=== PATIENT | male | born 1960 | race Caucasian/White ===

== ENCOUNTER → 2016-10-12 | Outpatient (CLI) | payer OTHER ==
[~2016-10-12] MED LIST: AMLO10TA2 PO; ASPI81TA85 PO; CALTTAB5 PO; CELE40TA PO; CYCL10TA PO; CYMB1CAP5 PO; HYDR25TAB PO; LISI-538 PO; LYRI75CA PO; METO50TA2 PO; MULTCAP PO; NICO14DI3 TD; OMEP20TA PO; PERC10TA17 PO; TRIC145T PO; TYLE1TAB5 PO; XANA2TAB2 PO; ZOCO20TA PO
--- NOTE | 2016-10-12 09:59 | REP ---
MRI LUMBAR SPINE WITHOUT CONTRAST: 10/12/2016 COMPARISON: 08/04/2015. CLINICAL HISTORY: Back pain, lumbar spondylosis. TECHNIQUE: Sagittal T1, T2 and STIR images with axial T1 and T2 sequences provided. FINDINGS: Normal lordosis is maintained. Vertebral body heights and marrow signal are normal from T12 through S2. The disc space is narrowed at L1-2, L3-4 through L5, S1 sparing only L2-3. All levels show loss of disc water signal but least at L2-3. The conus terminates at T12-L1 as before. There are discogenic endplate changes at L4-5. I see no progression of these findings compared to the prior. At T11-T12 and T12-L1 levels, there is no disc bulge or hernia, spinal or foraminal stenosis. At L1-L2, there is a broad-based disc bulge flattening ventral thecal sac. The central canal shows adequate cross-sectional area and no foraminal stenosis noted. At L2-3, there is mild disc bulge not causing any central canal stenosis. There is no foraminal encroachment. At L3-L4, there is a broad-based disc bulge with small central disc extrusion which appears unchanged from the previous study. This indents the ventral thecal sac. Ligamentum flavum and facet hypertrophy is noted producing combination factor moderate stenosis unchanged. Mild foraminal encroachment on the right as before. The left foramen shows adequate perineural fat, unchanged. At L4-5, a broad-based disc bulge with central disc extrusion is again seen. It is unchanged in size from the previous study. Ligamentum and facet hypertrophy noted producing moderately severe central canal stenosis. This is stable. There is mild foraminal encroachment on the right compared to the left, unchanged. At L5-S1, there is a broad-based disc bulge abutting the thecal sac. Hypertrophic facet changes and a stable few millimeters of anterolisthesis of L5 on S1. Mild nerve root compression on the left at L5 with marginally adequate right L5 nerve root. IMPRESSION: 1. Central canal stenosis L3-4, moderate with combined factors and some mild compression of the nerve root on the right in the neural foramen. Stable size of the disc extrusion at this level. 2. Moderate central canal stenosis of L4-5 with a disc bulge and extrusion with combined factors. No change in the central canal stenosis or size of the extrusion with some foraminal encroachment on the right. 3. The L5-S1 level shows disc bulge with central canal stenosis due to combined factors. There is grade 1 spondylolisthesis of L5-S1 due to facet arthritis. Some foraminal encroachment on the left slightly compressing L5 nerve root. The right foramen adequate. 4. The L1-2 and L2-3 levels show no significant spinal or foraminal stenosis. Signed by Russell Hood MD 10/12/2016 10:57 A
== END ==
LOC: M RAD 06:58
PROVIDERS: ATTEND Internal Medicine Cardiovascular Disease
DX: M51.26 Other intervertebral disc displacement, lumbar region (principal); M51.36 Other intervertebral disc degeneration, lumbar region

== ENCOUNTER → 2016-10-29 | Outpatient (CLI) | payer OTHER ==
--- NOTE | 2016-10-31 00:54 | ECWPNPC ---
PATIENT NAME: CHONG ZULETA : 1960 GENDER: MALE VISIT DATE: 10/29/2016 DISCHARGE DATE: 10/29/161658 VISIT LOCKED DATE TIME: PHYSICIAN: GAEL JONES RESOURCE: GAEL JONES REASON FOR APPOINTMENT 1. BACK/NECK HISTORY OF PRESENT ILLNESS HISTORY OF PRESENT ILLNESS: HERE FOR F/U AND MANAGEMENT OF CHRONIC NECK AND LOW BACK PAIN.RATING PAIN VAS 7/10.WORSE AREA OF PAIN IS NECK.[facility] WHO STOPPED LYRICA AND STARTED ON GABAPENTIN 600MG BID.PATIENT IS ABOUT TO GET NEW PRIMARY CARE PROVIDER.PATIENT IS NOT INTERESTED IN INJECTION THERAPY.CHIEF AREA PAIN RIGHT UPPER BACK.DIDNT DO PT WE ORDERED LAST VISIT. PAIN THE PATIENT DESCRIBES THE PAIN... FALL RISK SCREENING: SCREENING :TWO OR MORE FALLS WITHOUT INJURY IN THE PAST YEAR CURRENT MEDICATIONS TAKING CELEXA 40 MG TABLET ORALLY ONCE A DAY TAKING CYCLOBENZAPRINE HCL 10 MG TABLET 1 TABLET ORALLY THREE TIMES A DAY TAKING TRICOR 145 MG TABLET 1 TABLET ORALLY ONCE A DAY TAKING LISINOPRIL 20 MG TABLET 1 TABLET ORALLY BID TAKING METOPROLOL SUCCINATE 50 MG 1.5 TABS ORALLY BID TAKING SIMVASTATIN 20 MG TABLET 1 TABLET IN THE EVENING ORALLY ONCE A DAY TAKING TYLENOL PM EXTRA STRENGTH 500-25 MG TABLET 1 TABLET AT BEDTIME NEEDED ORALLY ONCE A DAY TAKING OMEPRAZOLE 20 MG ORALLY BID TAKING AMLODIPINE BESYLATE 10 MG TABLET 1 TABLET ORALLY NIGHTLY TAKING CALTRATE 600 TABLET ORALLY DAILY TAKING GABAPENTIN 600 MG TABLET 1 TABLET ORALLY BID NOT-TAKING MULTIVITAMIN 1 TAB ORALLY DAILY NOT-TAKING CYMBALTA 1 CAPSULE ORALLY DAILY AT BEDTIME NOT-TAKING PERCOCET 325-10 MG TABLET 1 TABLET NEEDED ORALLY EVERY 6 HRS DISCONTINUED XANAX 2 MG TABLET 1 TABLET ORALLY BEDTIME DISCONTINUED PERCOCET 5-325 MG TABLET 2 TABLETS NEEDED ORALLY EVERY 6 HRS DISCONTINUED LYRICA 150 MG CAPSULE 1 CAPSULE ORALLY TID DISCONTINUED TRAZODONE HCL 50 MG TABLET 1 TABLET AT BEDTIME NEEDED ORALLY ONCE A DAY PAST MEDICAL HISTORY HTN HIGH CHOLESTEROL ANXIETY REFLUX LEFT SHOULDER ROTATOR CUFF TEAR CHRONIC LOW BACK PAIN CERVICALGIA OCCIPITAL NEURALGIA ALLERGIES N.K.D.A. SOCIAL HISTORY GENERAL: TOBACCO USE ARE YOU A:CURRENT SMOKER PATIENT COUNSELED ON THE DANGERS OF TOBACCO USE AND URGED TO QUIT:10/29/2016 ARE YOU INTERESTED IN QUITTING?THINKING ABOUT QUITTING COUNSELED THE PATIENT ON SMOKING CESSATION, EDUCATION NURENLLQ36/03/2017 PAIN CLINIC PFS, CLERGY, PUBLIC HEALTH REFERRALS CLERGY REFERRAL NEEDED?NO WAS THE PROVIDER NOTIFIED OF ANY PERTINENT INFO?NO PFS REFERRAL NEEDED?NO PUBLIC HEALTH REFERRAL NEEDED?NO PATIENT: ____. REVIEW OF SYSTEMS CONSTITUTIONAL: ANY CHANGE IN YOUR MEDICAL CONDITION? NO . CHILLS NO . FEVER NO . INFECTION: DO YOU HAVE NEW INFECTIONS? NO . DO YOU HAVE HISTORY OF MRSA? NO . MUSCULOSKELETAL: ANY NEW PATTERNS OF PAIN OR NUMBNESS? YES . GASTROENTEROLOGY: ANY NEW CHANGE IN BOWEL CONTROL? NO . GENITOURINARY: ANY NEW CHANGE IN BLADDER CONTROL? NO . IS THERE A CHANCE YOU COULD BE ? NO . HEMATOLOGY/LYMPH: DO YOU TAKE ANY BLOOD THINNERS? (FOR EXAMPLE- COUMADIN, PLAVIX, AGGRENOX, PLATEL, PRADAXA, OR XARELTO) NO . WHEN WAS YOUR LAST DOSE? DATE: TIME: . NEUROLOGY: HAVE YOU FALLEN IN THE PAST 6 MONTHS? NO . ANY NEW EXTREMITY NUMBNESS OR WEAKNESS? NO . CARDIOLOGY: DO YOU HAVE A PACEMAKER OR DEFIBRILLATOR? NO . RESPIRATORY: HAVE YOU BEEN SICK IN THE PAST WEEK? NO . FEVER NO . FLU LIKE SYMPTOMS? NO . COUGH NO . INTEGUMENTARY: DO YOU HAVE ANY RASHES OR OPEN SORES? NO . ALLERGIC/IMMUNO: ARE YOU ALLERGIC TO SHELLFISH OR IV DYE? NO . ANY NEW ALLERGIES? NO . PSYCHIATRIC: DO YOU HAVE THOUGHTS OF HURTING YOURSELF OR SOMEONE ELSE? NO . ARE YOU ABUSED, NEGLECTED, OR IN AN UNSAFE ENVIRONMENT? NO . ENDOCRINOLOGY: ARE YOU DIABETIC? NO . OTHER: DO YOU NEED ANY PRESCRIPTIONS? NO . IF YES, PLEASE LIST: ____ . ANY NEW PROBLEMS WITH YOUR MEDICATIONS? NO . WHEN DID YOU LAST EAT? ____ . WHEN DID YOU LAST DRINK? ____ . WHAT DID YOU LAST DRINK? ____ . NAME OF PERSON DRIVING YOU HOME? ____ . DO YOU HAVE ANY OTHER QUESTIONS OR CONCERNS NO . REVIEWED BY: PROVIDER: GAEL VALDEZ . VITAL SIGNS WT 190 LBS, HT 72 IN, BMI 25.77 INDEX, BP 145/78 MM HG, HR 91 /MIN, RR 16 /MIN, TEMP 99.6 F, OXYGEN SAT % 96%, REVIEWED BY: VD. EXAMINATION CERVICAL SPINE/NECK: RANGE OF MOTION OF NECK:LIMITED FLEXION AND EXTENSION. VERTEBRAL SPINE TENDERNESS:TENDER WITH PALPATION OVER CERVICAL AXIS. MYOFASCIAL TRIGGER POINTS:TENDER WITH PALPATION OVER RIGHT TRAPEZIUS AND PARASPINAL REGION. ASSESSMENTS CERVICALGIA - M54.2 (PRIMARY) MYOFASCIAL MUSCLE PAIN - M79.1 LOW BACK PAIN - M54.5 TREATMENT CERVICALGIA STOP GABAPENTIN TABLET, 600 MG, 1 TABLET, ORALLY, BID, 30 DAY(S), 60 REFILL CYCLOBENZAPRINE HCL TABLET, 10 MG, 1 TABLET, ORALLY, THREE TIMES A DAY, 30 DAY(S), 45, REFILLS 2 NOTES: TRIGGER POINT INJECTION MATERIAL WAS PRINTEDSLOWLY DECREASE AND DISCONTINUE GABAPENTIN. REFERRAL TO:PHYSICAL THERAPIST REASON:CERVICALGIA/MYALGIA-2X WK X 6 WK-MYOFASCIAL RELEASE PROCEDURE CODES FA211 ESTABILISHED PATIENT [facility] FACILITY CHARGE DISPOSITION & COMMUNICATION FOLLOW UP 2WK POST (REASON: TPI RIGHT UPPER BACK) ELECTRONICALLY SIGNED BY COURTNEY ESPINAL ON 10/30/2016 AT 02:31 PM EDT DISCLAIMER : THIS IS A VISIT SUMMARY EXTRACTED FROM THE [employer] CHART. IT IS NOT A COPY OF THE [employer] PROGRESS NOTE. TOBY
== END ==
LOC: M PAIN 15:00
PROVIDERS: ATTEND Nurse Practitioner Family
DX: Z09 Encounter for follow-up examination after completed treatment for conditions other than malignant neoplasm (principal); G89.29 Other chronic pain; M54.2 Cervicalgia; M79.1 Myalgia; M54.5 Low back pain; I10 Essential (primary) hypertension; E78.00 Pure hypercholesterolemia, unspecified; F41.9 Anxiety disorder, unspecified; K21.9 Gastro-esophageal reflux disease without esophagitis; F17.200 Nicotine dependence, unspecified, uncomplicated; Z79.899 Other long term (current) drug therapy

== ENCOUNTER → 2016-11-13 | Outpatient (CLI) | payer OTHER | LOC: M PAIN 13:40 | PROVIDERS: ATTEND Anesthesiology | DX: Z53.29 Procedure and treatment not carried out because of patient's decision for other reasons (principal) ==

== ENCOUNTER → 2016-11-22 | Outpatient (CLI) | payer OTHER ==
[~2016-11-22] MED LIST changes: +BUPIVACAINE HCL 0.25% 10 ML VIAL As Ordered ONE; +BUPIVACAINE HCL 0.25% 30 ML VIAL As Ordered ONE; +TRIAMCINOLONE ACETONIDE SUSP 40 MG/ML VIAL (J3301) As Ordered ONE; +oxyCODONE 5MG TAB As Ordered ONE
--- NOTE | 2016-11-25 23:45 | ECWPNPC ---
PATIENT NAME: CHONG ZULETA : 1960 GENDER: MALE VISIT DATE: 11/22/2016 DISCHARGE DATE: 11/22/16935 VISIT LOCKED DATE TIME: PHYSICIAN: MACEY DO RESOURCE: MACEY DO REASON FOR APPOINTMENT 1. TPI HISTORY OF PRESENT ILLNESS HISTORY OF PRESENT ILLNESS: PAIN THE PATIENT DESCRIBES THE PAIN... FALL RISK SCREENING: SCREENING :NO FALLS IN THE PAST YEAR CURRENT MEDICATIONS TAKING CELEXA 40 MG TABLET ORALLY ONCE A DAY, NOTES: 11-21-162099 TAKING TRICOR 145 MG TABLET 1 TABLET ORALLY ONCE A DAY, NOTES: 11-21-162099 TAKING LISINOPRIL 20 MG TABLET 1 TABLET ORALLY BID, NOTES: 11-22-16599 TAKING METOPROLOL SUCCINATE 50 MG 1.5 TABS ORALLY BID, NOTES: 11-22-16599 TAKING SIMVASTATIN 20 MG TABLET 1 TABLET IN THE EVENING ORALLY ONCE A DAY, NOTES: 11-21-162099 TAKING OMEPRAZOLE 20 MG ORALLY BID, NOTES: 11-22-16599 TAKING AMLODIPINE BESYLATE 10 MG TABLET 1 TABLET ORALLY NIGHTLY, NOTES: 11-21-162099 TAKING CALTRATE 600 TABLET ORALLY DAILY, NOTES: 11-22-16599 TAKING CYCLOBENZAPRINE HCL 10 MG TABLET 1 TABLET ORALLY THREE TIMES A DAY, NOTES: 11-21-162099 TAKING VICODIN 5-300 MG TABLET 1 TABLET NEEDED ORALLY EVERY 6 HRS, NOTES: 11-22-16599 NOT-TAKING MULTIVITAMIN 1 TAB ORALLY DAILY NOT-TAKING CYMBALTA 1 CAPSULE ORALLY DAILY AT BEDTIME DISCONTINUED TYLENOL PM EXTRA STRENGTH 500-25 MG TABLET 1 TABLET AT BEDTIME NEEDED ORALLY ONCE A DAY DISCONTINUED PERCOCET 325-10 MG TABLET 1 TABLET NEEDED ORALLY EVERY 6 HRS MEDICATION LIST REVIEWED AND RECONCILED WITH THE PATIENT PAST MEDICAL HISTORY HTN HIGH CHOLESTEROL ANXIETY REFLUX LEFT SHOULDER ROTATOR CUFF TEAR CHRONIC LOW BACK PAIN CERVICALGIA OCCIPITAL NEURALGIA ALLERGIES N.K.D.A. SOCIAL HISTORY GENERAL: PAIN CLINIC PFS, CLERGY, PUBLIC HEALTH REFERRALS CLERGY REFERRAL NEEDED?NO WAS THE PROVIDER NOTIFIED OF ANY PERTINENT INFO?NO PFS REFERRAL NEEDED?NO PUBLIC HEALTH REFERRAL NEEDED?NO PATIENT: ____. REVIEW OF SYSTEMS CONSTITUTIONAL: ANY CHANGE IN YOUR MEDICAL CONDITION? NO . CHILLS NO . FEVER NO . INFECTION: DO YOU HAVE NEW INFECTIONS? NO . DO YOU HAVE HISTORY OF MRSA? NO . MUSCULOSKELETAL: ANY NEW PATTERNS OF PAIN OR NUMBNESS? NO . GASTROENTEROLOGY: ANY NEW CHANGE IN BOWEL CONTROL? NO . GENITOURINARY: ANY NEW CHANGE IN BLADDER CONTROL? NO . IS THERE A CHANCE YOU COULD BE ? NO . HEMATOLOGY/LYMPH: DO YOU TAKE ANY BLOOD THINNERS? (FOR EXAMPLE- COUMADIN, PLAVIX, AGGRENOX, PLATEL, PRADAXA, OR XARELTO) NO . WHEN WAS YOUR LAST DOSE? DATE: TIME: . NEUROLOGY: HAVE YOU FALLEN IN THE PAST 6 MONTHS? NO . ANY NEW EXTREMITY NUMBNESS OR WEAKNESS? NO . CARDIOLOGY: DO YOU HAVE A PACEMAKER OR DEFIBRILLATOR? NO . RESPIRATORY: HAVE YOU BEEN SICK IN THE PAST WEEK? NO . FEVER NO . FLU LIKE SYMPTOMS? NO . COUGH NO . INTEGUMENTARY: DO YOU HAVE ANY RASHES OR OPEN SORES? NO . ALLERGIC/IMMUNO: ARE YOU ALLERGIC TO SHELLFISH OR IV DYE? NO . ANY NEW ALLERGIES? NO . PSYCHIATRIC: DO YOU HAVE THOUGHTS OF HURTING YOURSELF OR SOMEONE ELSE? NO . ARE YOU ABUSED, NEGLECTED, OR IN AN UNSAFE ENVIRONMENT? NO . ENDOCRINOLOGY: ARE YOU DIABETIC? NO . OTHER: DO YOU NEED ANY PRESCRIPTIONS? NO . IF YES, PLEASE LIST: ____ . ANY NEW PROBLEMS WITH YOUR MEDICATIONS? NO . WHEN DID YOU LAST EAT? 11-21-16 PM . WHEN DID YOU LAST DRINK? 11-22-16 0600 . WHAT DID YOU LAST DRINK? WATER . NAME OF PERSON DRIVING YOU HOME? JJ SON . DO YOU HAVE ANY OTHER QUESTIONS OR CONCERNS NO . REVIEWED BY: PROVIDER: . VITAL SIGNS WT 200 LBS, HT 72 IN, BMI 27.12 INDEX, BP 131/69 MM HG, HR 83 /MIN, RR 95 /MIN, TEMP 99.6 F, OXYGEN SAT % 95, SAFE IN ENV? (Y/N) KG [id number], REVIEWED BY: CM. ASSESSMENTS MYALGIA - M79.1 (PRIMARY) PROCEDURES PN TRIGGER POINT INJECTION WITH STEROIDS PRE PROCEDURE DIAGNOSIS 1. MYALGIA 2. PAIN AT RIGHT SHOULDER AREA POST PROCEDURE DIAGNOSIS 1. MYALGIA 2. PAIN AT RIGHT SHOULDER AREA PROCEDURE TRIGGER POINT INJECTION AT RIGHT SHOULDER AREA SURGEON DR. MACEY DO GEOSPATIAL APPLICATIONS DEVELOPER NONE ANESTHESIA LOCAL PRE PROCEDURE NOTE THE PATIENT HAS A HISTORY OF CHRONIC PAIN AT THE RIGHT SHOULDER AREA. I EVALUATE THE PATIENT AND REVIEWED THE CHART. THERE IS EVIDENCE OF BANDS OF TISSUE WITH RESTRICTION OF MOVEMENT AND PRESENCE OF TRIGGER POINT AT THE AFFECTED AREA. I WENT OVER THE RISKS, ALTERNATIVES, AND BENEFITS ASSOCIATED WITH THIS PROCEDURE. THE PATIENT WOULD LIKE TO PROCEED AND GIVE CONSENT TO PERFORMED THE PROCEDURE. THE PATIENT DENIES UNEXPLAINABLE WEIGHT LOSS, FEVER, CHILLS, OR NEW CHANGES IN URINARY OR BOWEL CONTROL DESCRIPTION OF PROCEDURE THE PATIENT WAS BROUGHT TO THE PROCEDURE ROOM AND PLACED IN THE SITTING POSITION. THE AREA WAS CLEANED WITH ALCOHOL. THE PROCEDURE WAS DONE USING [employer] STERILE TECHNIQUE. I CHECKED LATERALITY AND THE LEVEL WHERE THE PROCEDURE WAS GOING TO BE PERFORMED WITH THE PATIENT AND THE SUPPORTING STAFF AT THE MOMENT OF THE TIME OUT IN THE PROCEDURE ROOM. USING A 25-GAUGE NEEDLE, TRIGGER POINTS WERE INJECTED AT THE RIGHT SHOULDER AREA WITH A TOTAL OF 40 ML OF BUPIVACAINE 0.25% AND KENALOG 40 MG. THERE WAS NO EVIDENCE OF BLOOD, PARESTHESIA OR CEREBROSPINAL FLUID DURING THE PROCEDURE. THE PATIENT WAS SENT TO THE RECOVERY ROOM. THE PATIENT WAS MOVING THE EXTREMITIES AND DOING WELL. THERE WAS NO COMPLICATION DURING THE PROCEDURE POST PROCEDURE NOTE THE PATIENT WILL BE SEEN IN A FOLLOW UP IN THE NEXT FEW WEEKS. INSTRUCTIONS WERE GIVEN, QUESTIONS WERE ANSWERED, AND THE PATIENT EXPRESSED UNDERSTANDING AND AGREES WITH THE PLAN. I, DANIEL JAUREGUI, DOCUMENTED THE ABOVE INFORMATION ACTING A SCRIBE FOR DR. DO. I HAVE REVIEWED THE ABOVE DOCUMENT, WRITTEN BY DANIEL JAUREGUI SCRIBJada AND I VERIFY THAT IT IS ACCURATE. PROCEDURE CODES 34690 INJ TRIGGER POINT / [facility] DISPOSITION & COMMUNICATION FOLLOW UP 3 WEEKS ELECTRONICALLY SIGNED BY MACEY DO MD ON 11/25/2016 AT 12:58 PM EDT DISCLAIMER : THIS IS A VISIT SUMMARY EXTRACTED FROM THE [employer] CHART. IT IS NOT A COPY OF THE [employer] PROGRESS NOTE. TOBY
== END ==
LOC: M PAIN 08:30
PROVIDERS: ATTEND Anesthesiology
DX: G89.29 Other chronic pain (principal); M79.1 Myalgia; M25.511 Pain in right shoulder; I10 Essential (primary) hypertension; E78.00 Pure hypercholesterolemia, unspecified; F41.9 Anxiety disorder, unspecified; K21.9 Gastro-esophageal reflux disease without esophagitis; Z79.899 Other long term (current) drug therapy
CPT/HCPCS: 20552; J3301

== ENCOUNTER → 2016-11-24 | Outpatient (REF) | payer OTHER ==
[~2016-11-24] MED LIST changes: -BUPIVACAINE HCL 0.25% 10 ML VIAL As Ordered ONE; -BUPIVACAINE HCL 0.25% 30 ML VIAL As Ordered ONE; -TRIAMCINOLONE ACETONIDE SUSP 40 MG/ML VIAL (J3301) As Ordered ONE; -oxyCODONE 5MG TAB As Ordered ONE
[2016-11-24 12:50] LABS: BASO % 0.7 % (0.0-1.0); EOS # 0.1 K/mm3 (0.0-0.50); EOS % 1.5 % (0.0-3.0); LYMPH % 30.4 % (24.0-44.0); MEAN CORPUSCULAR HEMOGLOBIN 25.9 pg (27.0-33.0); MEAN CORPUSCULAR HGB CONC 31.7 g/dl (32.0-36.5); MEAN CORPUSCULAR VOLUME 81.6 fl (80.0-96.0); MONO # 0.5 K/mm3 (0.0-0.8); MONO % 8.3 % (0.0-5.0); NEUTROPHILS # 3.7 K/mm3 (1.8-7.7); NEUTROPHILS % 56.4 % (36.0-66.0); WHITE BLOOD COUNT 6.6 K/mm3 (4.0-10.0)
[2016-11-24 13:10] LABS: ALBUMIN 4.3 GM/DL (3.2-5.2); ALBUMIN/GLOBULIN RATIO 1.23 (1.00-1.93); ALKALINE PHOSPHATASE 58 U/L (45-117); ALT/SGPT 28 U/L (12-78); ANION GAP 7 MEQ/L (8-16); AST/SGOT 14 U/L (15-37); BILIRUBIN,TOTAL 0.3 MG/DL (0.2-1.0); BLOOD UREA NITROGEN 13 MG/DL (7-18); CALCIUM LEVEL 9.1 MG/DL (8.5-10.1); CARBON DIOXIDE LEVEL 28 MEQ/L (21-32); CHLORIDE LEVEL 104 MEQ/L (98-107); CHOLESTEROL LEVEL 192 MG/DL (<200); CREATININE FOR GFR 0.89 MG/DL (0.70-1.30); GLOMERULAR FILTRATION RATE > 60.0 (>56); GLUCOSE, FASTING 100 MG/DL (70-105); POTASSIUM SERUM 4.5 MEQ/L (3.5-5.1); SODIUM LEVEL 139 MEQ/L (136-145); TOTAL PROTEIN 7.8 GM/DL (6.4-8.2); TRIGLYCERIDES LEVEL 189 MG/DL (<150)
== END ==
LOC: M LAB 12:34
PROVIDERS: ATTEND Physician Assistant Medical
DX: I10 Essential (primary) hypertension (principal)

== ENCOUNTER → 2016-12-25 | Outpatient (CLI) | payer OTHER ==
[2016-12-25 17:26] LABS: FERRITIN 7 NG/ML (26-388)
== END ==
LOC: M LAB 15:25
PROVIDERS: ATTEND Physician Assistant Medical
DX: D64.9 Anemia, unspecified (principal)

== ENCOUNTER → 2017-01-31 | Outpatient (CLI) | payer OTHER ==
[~2017-01-31] MED LIST changes: +FERR325T3 PO; +GABA600T PO; +LABE10TAB PO; -METO50TA2 PO; +METO50TA7 PO; -PERC10TA17 PO; +PERC10TA26 PO; +STOO100C PO; +TRAZ-136 PO; -TRIC145T PO; +TRIC145T22 PO; +VICO5TAB16 PO; +VITA500046 PO; +ZOCO80TA PO
[2017-01-31 11:18] LABS: INR 0.98
== END ==
LOC: M LAB 10:25
PROVIDERS: ATTEND Internal Medicine Gastroenterology
DX: D50.9 Iron deficiency anemia, unspecified (principal)

== ENCOUNTER → 2017-01-31 | Outpatient (CLI) | payer OTHER ==
[2017-01-31 11:13] LABS: BASO % 0.7 % (0.0-1.0); EOS # 0.1 K/mm3 (0.0-0.50); EOS % 2.5 % (0.0-3.0); LYMPH # 1.7 K/mm3 (1.5-4.5); LYMPH % 32.4 % (24.0-44.0); MEAN CORPUSCULAR HEMOGLOBIN 27.8 pg (27.0-33.0); MEAN CORPUSCULAR HGB CONC 33.3 g/dl (32.0-36.5); MEAN CORPUSCULAR VOLUME 83.4 fl (80.0-96.0); MONO # 0.5 K/mm3 (0.0-0.8); MONO % 8.8 % (0.0-5.0); NEUTROPHILS # 2.8 K/mm3 (1.8-7.7); RED CELL DISTRIBUTION WIDTH 17.5 % (11.5-14.5); WHITE BLOOD COUNT 5.3 K/mm3 (4.0-10.0)
[2017-01-31 12:01] LABS: ALBUMIN 3.9 GM/DL (3.2-5.2); ALBUMIN/GLOBULIN RATIO 1.08 (1.00-1.93); ALKALINE PHOSPHATASE 63 U/L (45-117); ALT/SGPT 30 U/L (12-78); ANION GAP 7 MEQ/L (8-16); AST/SGOT 20 U/L (15-37); BILIRUBIN,TOTAL 0.2 MG/DL (0.2-1.0); BLOOD UREA NITROGEN 8 MG/DL (7-18); CALCIUM LEVEL 9.3 MG/DL (8.5-10.1); CARBON DIOXIDE LEVEL 27 MEQ/L (21-32); CHLORIDE LEVEL 107 MEQ/L (98-107); CHOLESTEROL LEVEL 160 MG/DL (<200); CREATININE FOR GFR 0.74 MG/DL (0.70-1.30); FERRITIN 44 NG/ML (26-388); GLOMERULAR FILTRATION RATE > 60.0 (>56); GLUCOSE, FASTING 95 MG/DL (70-105); POTASSIUM SERUM 4.4 MEQ/L (3.5-5.1); SODIUM LEVEL 141 MEQ/L (136-145); TOTAL PROTEIN 7.5 GM/DL (6.4-8.2); TRIGLYCERIDES LEVEL 238 MG/DL (<150)
== END ==
LOC: M LAB 10:29
PROVIDERS: ATTEND Physician Assistant Medical
DX: D64.9 Anemia, unspecified (principal); E78.2 Mixed hyperlipidemia; E55.9 Vitamin D deficiency, unspecified

== ENCOUNTER → 2017-02-06 | Outpatient (CLI) | payer MEDICAID, OTHER, SELFPAY ==
[~2017-02-06] MED LIST changes: +E-Z-PAQUE 96% w/w SUSP 176GM BTL As Ordered ONE
--- NOTE | 2017-02-06 17:44 | REP ---
Small bowel follow-through The procedure was performed under the direct supervision of Dr. Richardson. The images were reviewed with Dr. Richardson. The rural sociologist film shows no organomegaly or pathological masses. The intestinal gas pattern is nonspecific. There are degenerative changes of the spine. Liquid barium was administered and the barium column was followed through the small bowel to the level of the terminal ileum. Small bowel transit time is approximately 2 hours and 15 minutes . During fluoroscopy gentle palpation shows all loops are freely movable and pliable. There are no fixed or angulated loops. The small bowel mucosal pattern is normal in course and caliber. There is no transition to suggest a partial small bowel obstruction. Spot filming of the terminal ileum shows it to be unremarkable. Impression: Small bowel follow-through examination within normal limits. 1 minute and 4 seconds of fluoro time was utilized for this procedure. Reviewed by MICHELL Prasad 02/06/2017 04:24 PSigned by Mihir Richardson MD 02/06/2017 05:34 P
== END ==
LOC: M RAD 08:33
PROVIDERS: ATTEND Internal Medicine Gastroenterology
DX: D50.9 Iron deficiency anemia, unspecified (principal)

== ENCOUNTER → 2017-02-11 | Outpatient (CLI) | payer MEDICAID, OTHER ==
[~2017-02-11] VITALS: Ht 182.9 cm; Wt 84.8 kg
[~2017-02-11] MED LIST changes: -E-Z-PAQUE 96% w/w SUSP 176GM BTL As Ordered ONE; +LIDOCAINE 2% INJ 100 MG/5 ML SDV (FOR ANES.) As Ordered ONE; +NS 1,000 ML IV ONE; +PROPOFOL 200 MG/20 ML VIAL As Ordered ONE; +fentaNYL 100 MCG/2 ML INJECTION (J3010) As Ordered ONE
--- NOTE | 2017-02-11 13:28 | ROOR ---
Patient Name: Calvin Stoddard Procedure Date: 02/11/2017 1:12 PM Date of : 1960 Age: 56 Room: [facility] Gender: Male Note Status: Finalized Procedure: Upper GI endoscopy Indications: Anemia (unspec) Providers: Rufus CAMACHO MD Referring MD: ANABELLA BALLESTEROS Requesting Provider: Medicines: Monitored Anesthesia Care Complications: No immediate complications. Procedure: Pre-Anesthesia Assessment: - The heart rate, respiratory rate, oxygen saturations, blood pressure, adequacy of pulmonary ventilation, and response to care were monitored throughout the procedure. The Endoscope was introduced through the mouth, and advanced to the third part of duodenum. The upper GI endoscopy was accomplished without difficulty. The patient tolerated the procedure well. Findings: The esophagus was normal. The stomach was normal. The examined duodenum was normal. Impression: - Normal esophagus. - Normal stomach. - Normal examined duodenum. - No specimens collected. Recommendation: - Continue present medications. Rufus Camacho MD Rufus CAMACHO MD 02/11/2017 1:28:18 PM This report has been signed electronically. Number of Addenda: 0 Note Initiated On: 02/11/2017 1:12 PM Estimated Blood Loss: Estimated blood loss: none.
--- NOTE | 2017-02-11 13:49 | ROOR ---
Patient Name: Calvin Stoddard Procedure Date: 02/11/2017 1:13 PM Date of : 1960 Age: 56 Room: [facility] Gender: Male Note Status: Finalized Procedure: Colonoscopy Indications: Hematochezia, Rectal bleeding, Iron deficiency anemia Providers: Rufus CAMACHO MD Referring MD: ANABELLA BALLESTEROS Requesting Provider: Medicines: Monitored Anesthesia Care Complications: No immediate complications. Procedure: Pre-Anesthesia Assessment: - The heart rate, respiratory rate, oxygen saturations, blood pressure, adequacy of pulmonary ventilation, and response to care were monitored throughout the procedure. The Colonoscope was introduced through the anus and advanced to the terminal ileum, with identification of the appendiceal orifice and IC valve. The colonoscopy was performed without difficulty. The patient tolerated the procedure well. The quality of the bowel preparation was good. Findings: The perianal and digital rectal examinations were normal. Internal hemorrhoids were found during retroflexion. The hemorrhoids were large. The entire examined colon appeared normal on direct and retroflexion views. The terminal ileum appeared normal. Impression: - Large irritated prolapsing Internal hemorrhoids. - The entire examined colon is normal on direct and retroflexion views. - The examined portion of the ileum was normal. - No specimens collected. Recommendation: - Refer to a surgeon at appointment to be scheduled. - (I suspect your anemia may well be related to chronic significant rectal bleeding related to the large internal hemorrhoids. I would recommend repair of your hemorrhoids. I will make a referral to a surgeon) Rufus Camacho MD Rufus CAMACHO MD 02/11/2017 1:49:26 PM This report has been signed electronically. Number of Addenda: 0 Note Initiated On: 02/11/2017 1:13 PM Estimated Blood Loss: Estimated blood loss: none.
[2017-02-11 14:10] VITALS: BP 153/84
== END | disposition home or self-care (01) ==
LOC: M OPP 11:32
PROVIDERS: ATTEND Internal Medicine Gastroenterology
DX: D50.9 Iron deficiency anemia, unspecified (principal); K62.5 Hemorrhage of anus and rectum; K92.1 Melena; K64.8 Other hemorrhoids; I10 Essential (primary) hypertension; E78.5 Hyperlipidemia, unspecified; Z87.19 Personal history of other diseases of the digestive system; R12 Heartburn; R06.02 Shortness of breath; M19.90 Unspecified osteoarthritis, unspecified site; M54.9 Dorsalgia, unspecified; F41.9 Anxiety disorder, unspecified; F32.9 Major depressive disorder, single episode, unspecified; R51 Headache; F17.210 Nicotine dependence, cigarettes, uncomplicated; Z79.899 Other long term (current) drug therapy; M81.0 Age-related osteoporosis without current pathological fracture

== ENCOUNTER → 2017-07-18 | Outpatient (REF) | payer OTHER ==
[~2017-07-18] MED LIST changes: -LIDOCAINE 2% INJ 100 MG/5 ML SDV (FOR ANES.) As Ordered ONE; -NS 1,000 ML IV ONE; -PROPOFOL 200 MG/20 ML VIAL As Ordered ONE; -fentaNYL 100 MCG/2 ML INJECTION (J3010) As Ordered ONE
[2017-07-18 20:50] LABS: BASO % 0.4 % (0.0-1.0); EOS # 0.1 10^3/uL (0.0-0.50); EOS % 1.5 % (0.0-3.0); LYMPH # 2.2 10^3/uL (1.5-4.5); LYMPH % 32.4 % (24.0-44.0); MEAN CORPUSCULAR HEMOGLOBIN 28.8 pg (27.0-33.0); MEAN CORPUSCULAR HGB CONC 31.6 g/dl (32.0-36.5); MONO # 0.7 10^3/uL (0.0-0.8); MONO % 9.8 % (0.0-5.0); NEUTROPHILS # 3.8 10^3/uL (1.8-7.7); NEUTROPHILS % 54.9 % (36.0-66.0); PLATELET COUNT, AUTOMATED 222 10^3/uL (150-450); RED CELL DISTRIBUTION WIDTH 12.8 % (11.5-14.5); WHITE BLOOD COUNT 6.9 10^3/uL (4.0-10.0)
[2017-07-18 20:56] LABS: ALBUMIN 4.2 GM/DL (3.2-5.2); ALBUMIN/GLOBULIN RATIO 1.24 (1.00-1.93); ALKALINE PHOSPHATASE 63 U/L (45-117); ALT/SGPT 36 U/L (12-78); ANION GAP 6 MEQ/L (8-16); AST/SGOT 21 U/L (7-37); BILIRUBIN,TOTAL 0.2 MG/DL (0.2-1.0); BLOOD UREA NITROGEN 10 MG/DL (7-18); CALCIUM LEVEL 9.6 MG/DL (8.5-10.1); CARBON DIOXIDE LEVEL 30 MEQ/L (21-32); CHLORIDE LEVEL 107 MEQ/L (98-107); CHOLESTEROL LEVEL 180 MG/DL (<200); FERRITIN 93 NG/ML (26-388); GLOMERULAR FILTRATION RATE > 60.0 (>56); GLUCOSE, FASTING 119 MG/DL (70-105); POTASSIUM SERUM 4.9 MEQ/L (3.5-5.1); SODIUM LEVEL 143 MEQ/L (136-145); T UPTAKE 29 % (33-40); THYROXINE (T4) 7.2 UG/DL (4.5-12.0); TOTAL PROTEIN 7.6 GM/DL (6.4-8.2); TRIGLYCERIDES LEVEL 197 MG/DL (<150)
[2017-07-18 21:17] LABS: FOLATE 8.4 NG/ML; VITAMIN B12 LEVEL 342 PG/ML
== END ==
LOC: M LAB REF 12:01
PROVIDERS: ATTEND Physician Assistant Medical
DX: R42 Dizziness and giddiness (principal)

== ENCOUNTER 2017-08-16 06:17 | Day surgery (SDC) | payer OTHER ==
[2017-08-16] MEDS: LR 1,000 ML IV (06:30)
[2017-08-16] MEDS: metroNIDAZOLE 500 MG in APPROPRIATE DILUENT 1 EA IV (07:44)
[2017-08-16] MEDS ORDERED: PROPOFOL 200 MG/20 ML VIAL As Ordered ×2 (07:46→08:37)
[2017-08-16] MEDS ORDERED: CHLOROPROCAINE 2 % INJ PRES.FREE 20 ML VIAL (J2400) As Ordered (07:46)
[2017-08-16] MEDS ORDERED: MIDAZOLAM INJ 2 MG/2 ML VIAL (J2250) As Ordered (07:46)
[2017-08-16] MEDS ORDERED: LIDOCAINE 2% INJ 100 MG/5 ML SDV (FOR ANES.) As Ordered (07:46)
[2017-08-16] MEDS: BUPIVACAINE LIPOSOME/PF 1.3% 20 ML VIAL (13.3MG/ML)(EXPAREL) As Ordered (08:09)
[2017-08-16] MEDS: LIDOCAINE W/EPINEPHRINE 1% 20ML VIAL As Ordered (08:09)
[2017-08-16] MEDS: BUPIVACAINE HCL 0.25% 10 ML VIAL As Ordered (08:09)
[2017-08-16] MEDS ORDERED: LR 1,000 ML IV (09:30)
[2017-08-16] MEDS ORDERED: ONDANSETRON 4MG/2ML VIAL (J2405) IV ×2 (09:30→09:45)
[2017-08-16] MEDS ORDERED: fentaNYL 100 MCG/2 ML INJECTION (J3010) IV (09:30)
[2017-08-16] MEDS ORDERED: HYDROmorphone HCL 1 MG/ML SYRINGE (J1170) IV (09:30)
[2017-08-16] MEDS ORDERED: KETOROLAC 30 MG/ML VIAL (J1885) IV (09:45)
[2017-08-16] MEDS ORDERED: NORCO, ANEXSIA 5/325MG TABLET (HYDROcodone/ACETAMINOPHEN) PO (09:45)
== END 2017-08-16 10:34 | disposition home or self-care (01) ==
LOC: M SDC 06:17
DX: K64.3 Fourth degree hemorrhoids (principal); K64.8 Other hemorrhoids; F41.9 Anxiety disorder, unspecified; M06.9 Rheumatoid arthritis, unspecified; F32.9 Major depressive disorder, single episode, unspecified; R51 Headache; M81.0 Age-related osteoporosis without current pathological fracture; D64.9 Anemia, unspecified; E78.00 Pure hypercholesterolemia, unspecified; K21.9 Gastro-esophageal reflux disease without esophagitis; M54.9 Dorsalgia, unspecified; Z79.899 Other long term (current) drug therapy; Z72.0 Tobacco use
CPT/HCPCS: 46260

== ENCOUNTER → 2017-09-11 | Outpatient (CLI) | payer OTHER | LOC: M EKG 10:44 | DX: Z01.818 Encounter for other preprocedural examination (principal); G56.03 Carpal tunnel syndrome, bilateral upper limbs | CPT/HCPCS: 93005 ==

== ENCOUNTER → 2017-11-11 | Outpatient (REF) | payer OTHER ==
[2017-11-11 12:41] LABS: HEMATOCRIT 41.6 % (42.0-52.0); HEMOGLOBIN 13.9 g/dl (13.5-17.5); MEAN CORPUSCULAR HEMOGLOBIN 28.2 pg (27.0-33.0); MEAN CORPUSCULAR HGB CONC 33.4 g/dl (32.0-36.5); MEAN CORPUSCULAR VOLUME 84.4 fl (80.0-96.0); PLATELET COUNT, AUTOMATED 242 10^3/uL (150-450); RED BLOOD COUNT 4.93 10^6/uL (4.30-6.10); RED CELL DISTRIBUTION WIDTH 13.3 % (11.5-14.5); WHITE BLOOD COUNT 8.8 10^3/uL (4.0-10.0)
[2017-11-11 13:16] LABS: TESTOSTERONE 341 NG/DL (241-827)
[2017-11-11 13:22] LABS: ESTIMATED AVERAGE GLUCOSE 114 MG/DL (60-110); HEMOGLOBIN A1c 5.6 %
[2017-11-11 13:23] LABS: ALBUMIN 4.5 GM/DL (3.2-5.2); ALBUMIN/GLOBULIN RATIO 1.29 (1.00-1.93); ALKALINE PHOSPHATASE 59 U/L (45-117); ALT/SGPT 25 U/L (12-78); ANION GAP 7 MEQ/L (8-16); AST/SGOT 19 U/L (7-37); BILIRUBIN,TOTAL 0.4 MG/DL (0.2-1.0); BLOOD UREA NITROGEN 8 MG/DL (7-18); CALCIUM LEVEL 9.4 MG/DL (8.5-10.1); CARBON DIOXIDE LEVEL 25 MEQ/L (21-32); CHLORIDE LEVEL 107 MEQ/L (98-107); CHOLESTEROL LEVEL 216 MG/DL (<200); CREATININE FOR GFR 0.81 MG/DL (0.70-1.30); GLOMERULAR FILTRATION RATE > 60.0 (>56); GLUCOSE, FASTING 84 MG/DL (70-100); HDL CHOLESTEROL 48 MG/DL (>40); LDL CHOLESTEROL 122.4 MG/DL (<100); NON-HDL-C 168 MG/DL; PROSTATIC SPECIFIC AG MONITOR 0.24 NG/ML (< 4.0); SODIUM LEVEL 139 MEQ/L (136-145); TRIGLYCERIDES LEVEL 228 MG/DL (<150)
== END ==
LOC: M LABDRWAD 12:12
DX: N40.0 Benign prostatic hyperplasia without lower urinary tract symptoms (principal); R53.83 Other fatigue; I10 Essential (primary) hypertension

== ENCOUNTER → 2019-03-31 | Outpatient (REF) | payer OTHER ==
[~2019-03-31] MED LIST changes: -AMLO10TA2 PO; +AMLO10TA5 PO; -GABA600T PO; +GABA600T4 PO; +GEMF600T5 PO; +HYDR-2541 PO; -HYDR25TAB PO; +IBUP-1022 PO; +MM S100C PO; -STOO100C PO; -TRAZ-136 PO; +TRAZ-163 PO; -VICO5TAB16 PO; +VICO5TAB17 PO
[2019-03-31 17:01] LABS: BLOOD UREA NITROGEN 11 MG/DL (7-18); C REACTIVE PROTEIN QUANTITATIV < 0.30 MG/DL (0.00-0.30); CREATININE FOR GFR 0.78 MG/DL (0.70-1.30); GLOMERULAR FILTRATION RATE > 60.0 (>56); RHEUMATOID FACTOR QUANT < 10.0 IU/ML (<15.0)
[2019-04-07 00:06] LABS: ANTINUCLEAR ANTIBODIES DIRECT Negative (Negative); HLA-B27 Negative (.)
== END ==
LOC: M LABDRAW1 15:52
PROVIDERS: ATTEND Physician Assistant
DX: M47.817 Spondylosis without myelopathy or radiculopathy, lumbosacral region (principal)

== ENCOUNTER → 2019-08-20 | Outpatient (CLI) | payer OTHER ==
[~2019-08-20] MED LIST changes: +OMEP-358 PO; -OMEP20TA PO; -TRAZ-163 PO; +TRAZ-257 PO
[2019-08-20 12:54] LABS: PLATELET COUNT, AUTOMATED 188 10^3/uL (150-450)
[2019-08-20 13:09] LABS: PROTHROMBIN TIME 12.9 SECONDS (11.8-14.0)
[2019-08-20 13:10] LABS: PARTIAL THROMBOPLASTIN TIME 29.1 SECONDS (25.0-38.4)
== END ==
LOC: M LAB 12:01
PROVIDERS: ATTEND Physician Assistant
DX: Z01.812 Encounter for preprocedural laboratory examination (principal); M47.27 Other spondylosis with radiculopathy, lumbosacral region

== ENCOUNTER → 2020-03-23 | Outpatient (CLI) | payer OTHER ==
[~2020-03-23] MED LIST changes: -AMLO10TA5 PO; +AMLO1TAB25 PO; -ASPI81TA85 PO; +ASPI81TA86 PO; +CYCL-707 PO; -CYCL10TA PO
== END ==
LOC: M LABSMTC 13:58
PROVIDERS: ATTEND Physical Medicine & Rehabilitation
DX: Z03.818 Encounter for observation for suspected exposure to other biological agents ruled out (principal); Z11.59 Encounter for screening for other viral diseases
CPT/HCPCS: C9803; U0003

== ENCOUNTER → 2020-03-24 | Outpatient (CLI) | payer OTHER ==
[2020-03-24 15:24] LABS: PLATELET COUNT, AUTOMATED 208 10^3/uL (150-450)
[2020-03-24 15:25] LABS: INR 0.95; PARTIAL THROMBOPLASTIN TIME 29.3 SECONDS (25.0-38.4); PROTHROMBIN TIME 12.9 SECONDS (11.8-14.0)
[2020-03-24 16:10] LABS: COLLAGEN EPINEPHRINE 181 SECONDS (74-162)
[2020-03-24 17:10] LABS: COLLAGEN ADP 100 SECONDS (56-103)
== END ==
LOC: M PLALAB 13:38
PROVIDERS: ATTEND Physician Assistant
DX: M51.37 Other intervertebral disc degeneration, lumbosacral region (principal)

== ENCOUNTER → 2020-03-28 | Outpatient (CLI) | payer OTHER ==
[2020-03-28 11:39] LABS: COLLAGEN EPINEPHRINE 136 SECONDS (74-162)
== END ==
LOC: M LAB 09:26
PROVIDERS: ATTEND Physical Medicine & Rehabilitation
DX: Z01.812 Encounter for preprocedural laboratory examination (principal)

== ENCOUNTER → 2020-05-04 | Outpatient (CLI) | payer OTHER | LOC: M LABSMTC 12:51 | PROVIDERS: ATTEND Physical Medicine & Rehabilitation | DX: Z01.812 Encounter for preprocedural laboratory examination (principal); Z20.828 Contact with and (suspected) exposure to other viral communicable diseases ==

== ENCOUNTER → 2020-07-20 | Outpatient (CLI) | payer OTHER ==
[~2020-07-20] MED LIST changes: +LABE100T4 PO; -LABE10TAB PO
== END ==
LOC: M LABSMTC 13:17
PROVIDERS: ATTEND Physical Medicine & Rehabilitation
DX: Z01.812 Encounter for preprocedural laboratory examination (principal); Z20.828 Contact with and (suspected) exposure to other viral communicable diseases

== ENCOUNTER → 2020-09-09 | Outpatient (REF) | payer OTHER ==
[~2020-09-09] MED LIST changes: -LISI-538 PO; +LISI20TA33 PO
[2020-09-09 17:23] LABS: BLOOD UREA NITROGEN 11 MG/DL (7-18); CREATININE FOR GFR 0.92 MG/DL (0.70-1.30); GLOMERULAR FILTRATION RATE > 60.0 (>56)
== END ==
LOC: M LABDRWAD 16:14
PROVIDERS: ATTEND Physician Assistant
DX: M51.37 Other intervertebral disc degeneration, lumbosacral region (principal)

== ENCOUNTER → 2020-11-04 | Outpatient (CLI) | payer OTHER ==
--- NOTE | 2020-11-04 14:04 | REP ---
INDICATION: DISC DEGENERATION, R/O INFECTION/HNP/STENOSIS,COMP. COMPARISON: MR lumbar spine 01/22/2020. TECHNIQUE: Sagittal T1, T2, stir images, axial T1 and T2 weighted images of the lumbar spine were obtained. FINDINGS: There is moderate to severe multilevel degenerative disc disease with loss of disc height and disc desiccation seen throughout the lumbar spine. On the sagittal T2 weighted images, there is a large disc herniation at the L2-3 level with severe canal stenosis. The conus ends above this level, at L1. The nerve roots of the cauda equina are redundant below the level of the high-grade stenosis at L2-3 level. Disc protrusions are also seen at L3-4 and L4-5 levels on the sagittal T2 weighted images. No of sommer listhesis. On the review of sagittal images, At L1-2: Global disc bulge slightly eccentric to the right with kttj-zt-bdaibnsu canal narrowing, ibdf-up-rxaqmmks right foraminal narrowing and mild left foraminal narrowing. At L2-3 global disc bulge and disc herniation into the canal on the left, with impingement and compression of the nerve roots of the cauda equina. There is near complete effacement of the left neural foramen at this level. The right neural foramen is only mildly narrowed. At L3-4 global disc bulge and ligamentum flavum infolding with eoif-sx-kayzfksc canal narrowing, at least moderate right foraminal narrowing and cvir-dg-lwfvhopy left foraminal narrowing. At L4-5 global disc bulge, moderate right and ntqr-xz-qcseqkch left foraminal narrowing and mild canal stenosis. At L5-S1 mild canal narrowing and moderate bilateral foraminal narrowing. The coronal images demonstrate a mild right convex lumbar curvature apex approximately L1. IMPRESSION: 1. Twfjmpeo-jl-gsbdrr multilevel degenerative disc disease. High-grade stenosis at the L2-3 level. 2. At L2-3 global disc bulge and disc herniation into the canal on the left, with impingement and compression of the nerve roots of the cauda equina. There is near complete effacement of the left neural foramen at this level. There appears to be extruded disc material posterior to the FL vertebrae on the left. The right neural foramen is only mildly narrowed. 3. At L3-4 global disc bulge and ligamentum flavum infolding with tqvr-wh-bocljxvw canal narrowing, at least moderate right foraminal narrowing and lbkx-fv-mavlocig left foraminal narrowing. 4. At L4-5 global disc bulge, moderate right and wnhj-al-hiikngzv left foraminal narrowing and mild canal stenosis. <Electronically signed by Bandar Mullen > 11/04/20 1400
== END ==
LOC: M PLARAD 12:26
PROVIDERS: ATTEND Physician Assistant
DX: M51.37 Other intervertebral disc degeneration, lumbosacral region (principal); M51.36 Other intervertebral disc degeneration, lumbar region; M51.26 Other intervertebral disc displacement, lumbar region; M48.061 Spinal stenosis, lumbar region without neurogenic claudication

== ENCOUNTER → 2021-01-13 | Outpatient (REF) | payer OTHER ==
[2021-01-13 12:56] LABS: PLATELET COUNT, AUTOMATED 200 10^3/uL (150-450)
[2021-01-13 13:03] LABS: INR 0.92; PROTHROMBIN TIME 12.6 SECONDS (12.5-14.3)
== END ==
LOC: M LABDRWAD 12:29
PROVIDERS: ATTEND Physical Medicine & Rehabilitation
DX: Z01.812 Encounter for preprocedural laboratory examination (principal)

== ENCOUNTER → 2021-11-13 | Outpatient (CLI) | payer OTHER ==
[2021-11-13 17:33] LABS: HEMATOCRIT 43.1 % (42.0-52.0); HEMOGLOBIN 14.1 g/dl (13.5-17.5); MEAN CORPUSCULAR HEMOGLOBIN 29.1 pg (27.0-33.0); MEAN CORPUSCULAR HGB CONC 32.7 g/dl (32.0-36.5); MEAN CORPUSCULAR VOLUME 88.9 fl (80.0-96.0); PLATELET COUNT, AUTOMATED 228 10^3/uL (150-450); RED BLOOD COUNT 4.85 10^6/uL (4.30-6.10); WHITE BLOOD COUNT 7.8 10^3/uL (4.0-10.0)
[2021-11-13 17:54] LABS: HEMOGLOBIN A1c 5.1 %
[2021-11-13 18:14] LABS: ALBUMIN 4.3 GM/DL (3.2-5.2); ALT/SGPT 28 U/L (12-78); BILIRUBIN,TOTAL 0.5 MG/DL (0.2-1.0); BLOOD UREA NITROGEN 11 MG/DL (7-18); CARBON DIOXIDE LEVEL 27 MEQ/L (21-32); CHLORIDE LEVEL 106 MEQ/L (98-107); CHOLESTEROL LEVEL 235 MG/DL (<200); CHOLESTEROL RISK RATIO 3.916 (<5); CREATININE FOR GFR 0.66 MG/DL (0.70-1.30); GLOMERULAR FILTRATION RATE > 60.0 (>49); GLUCOSE, FASTING 94 MG/DL (70-100); HDL CHOLESTEROL 60 MG/DL (>40); LDL CHOLESTEROL 135 MG/DL (<100); NON-HDL-C 175 MG/DL; POTASSIUM SERUM 4.4 MEQ/L (3.5-5.1); PROSTATIC SPECIFIC AG MONITOR 0.39 NG/ML (< 4.00); SODIUM LEVEL 139 MEQ/L (136-145); TOTAL PROTEIN 7.7 GM/DL (6.4-8.2); TRIGLYCERIDES LEVEL 198 MG/DL (<150)
== END ==
LOC: M RAD 14:57
PROVIDERS: ATTEND Family Medicine
DX: J44.9 Chronic obstructive pulmonary disease, unspecified (principal); I10 Essential (primary) hypertension

== ENCOUNTER → 2021-12-06 | Outpatient (CLI) | payer OTHER | LOC: M RAD 15:49 | PROVIDERS: ATTEND Family Medicine | DX: R91.8 Other nonspecific abnormal finding of lung field (principal); K76.0 Fatty (change of) liver, not elsewhere classified; I25.10 Atherosclerotic heart disease of native coronary artery without angina pectoris ==

== ENCOUNTER → 2022-10-02 | Outpatient (REF) | payer OTHER ==
[~2022-10-02] MED LIST changes: -LABE100T4 PO; +LABE100T6 PO; +SIMV-253 PO; -ZOCO20TA PO
[2022-10-02 18:48] LABS: HEMATOCRIT 43.5 % (42.0-52.0); MEAN CORPUSCULAR HGB CONC 32.2 g/dl (32.0-36.5); MEAN CORPUSCULAR VOLUME 90.2 fl (80.0-96.0); PLATELET COUNT, AUTOMATED 269 10^3/uL (150-450); RED BLOOD COUNT 4.82 10^6/uL (4.30-6.10); WHITE BLOOD COUNT 6.8 10^3/uL (4.0-10.0)
[2022-10-02 19:42] LABS: THYROID STIMULATING HORMONE 2.149 uIU/ML (0.55-4.78)
[2022-10-02 20:07] LABS: HIV 1&2 SCREEN CENTAUR NEGATIVE (NEGATIVE)
[2022-10-02 20:15] LABS: HEPATITIS C VIRUS ABY INDEX < 0.0 INDEX (<0.8)
[2022-10-02 20:46] LABS: ALBUMIN 4.1 G/DL (3.2-5.2); ALKALINE PHOSPHATASE 71 U/L (46-116); ALT/SGPT 17 U/L (7.0-40); AST/SGOT 17 U/L (<34); BILIRUBIN,TOTAL 0.5 MG/DL (0.3-1.2); BLOOD UREA NITROGEN 11 MG/DL (9-23); CALCIUM LEVEL 9.5 MG/DL (8.3-10.6); CARBON DIOXIDE LEVEL 28 MMOL/L (20-31); CHLORIDE LEVEL 102 MMOL/L (98-107); CHOLESTEROL LEVEL 209 MG/DL (<200); CHOLESTEROL RISK RATIO 3.69 (<5); CREATININE FOR GFR 0.63 MG/DL (0.70-1.30); GLOMERULAR FILTRATION RATE > 60.0 (>49); GLUCOSE, FASTING 92 MG/DL (74-106); HDL CHOLESTEROL 56.5 MG/DL (>40); LDL CHOLESTEROL 120.1 MG/DL (<100); NON-HDL-C 153 MG/DL; POTASSIUM SERUM 4.6 MMOL/L (3.5-5.1); SODIUM LEVEL 138 MMOL/L (136-145); TRIGLYCERIDES LEVEL 162 MG/DL (<150)
[2022-10-03 00:39] LABS: MAGNESIUM LEVEL 1.9 MG/DL (1.8-2.4)
== END ==
LOC: M LAB REF 16:31
PROVIDERS: ATTEND Physician Assistant
DX: Z11.59 Encounter for screening for other viral diseases (principal); I10 Essential (primary) hypertension; Z11.4 Encounter for screening for human immunodeficiency virus [HIV]; R12 Heartburn

== ENCOUNTER → 2023-10-07 | Outpatient (REF) | payer OTHER ==
[2023-10-07 13:09] LABS: ALBUMIN 3.9 G/DL (3.2-5.2); ALKALINE PHOSPHATASE 76 U/L (46-116); ALT/SGPT 23 U/L (7.0-40); AST/SGOT 17 U/L (<34); BILIRUBIN,TOTAL 0.2 MG/DL (0.3-1.2); BLOOD UREA NITROGEN 11 MG/DL (9-23); CALCIUM LEVEL 9.3 MG/DL (8.3-10.6); CARBON DIOXIDE LEVEL 30 MMOL/L (20-31); CHLORIDE LEVEL 104 MMOL/L (98-107); CHOLESTEROL LEVEL 149 MG/DL (<200); CHOLESTEROL RISK RATIO 3.07 (<5); CREATININE FOR GFR 0.68 MG/DL (0.70-1.30); GLOMERULAR FILTRATION RATE > 60.0 (>49); GLUCOSE, FASTING 112 MG/DL (74-106); HDL CHOLESTEROL 48.4 MG/DL (>40); NON-HDL-C 100.6 MG/DL; POTASSIUM SERUM 4.6 MMOL/L (3.5-5.1); SODIUM LEVEL 139 MMOL/L (136-145); TRIGLYCERIDES LEVEL 223 MG/DL (<150)
[2023-10-07 13:11] LABS: THYROID STIMULATING HORMONE 2.543 uIU/ML (0.55-4.78)
== END ==
LOC: M LAB REF 10:46
PROVIDERS: ATTEND Family Medicine Addiction Medicine
DX: I10 Essential (primary) hypertension (principal)

== ENCOUNTER → 2024-02-27 | Outpatient (CLI) | payer OTHER | LOC: M PLARAD 13:10 | PROVIDERS: ATTEND Orthopaedic Surgery | DX: M47.892 Other spondylosis, cervical region (principal) ==

== ENCOUNTER → 2024-04-09 | Outpatient (REF) | payer OTHER ==
[~2024-04-09] MED LIST changes: +GABA-1490 PO; -GABA600T4 PO
[2024-04-09 17:26] LABS: ALKALINE PHOSPHATASE 65 U/L (46-116); ALT/SGPT 23 U/L (7.0-40); AST/SGOT 18 U/L (<34); BILIRUBIN,TOTAL 0.4 MG/DL (0.3-1.2); BLOOD UREA NITROGEN 9 MG/DL (9-23); CALCIUM LEVEL 9.6 MG/DL (8.3-10.6); CARBON DIOXIDE LEVEL 31 MMOL/L (20-31); CHLORIDE LEVEL 104 MMOL/L (98-107); CHOLESTEROL LEVEL 195 MG/DL (<200); CHOLESTEROL RISK RATIO 2.91 (<5); CREATININE FOR GFR 0.73 MG/DL (0.70-1.30); GLOMERULAR FILTRATION RATE > 60.0 (>49); GLUCOSE, FASTING 93 MG/DL (74-106); HDL CHOLESTEROL 66.8 MG/DL (>40); LDL CHOLESTEROL 111.2 MG/DL (<100); NON-HDL-C 128.2 MG/DL; POTASSIUM SERUM 4.5 MMOL/L (3.5-5.1); SODIUM LEVEL 137 MMOL/L (136-145); TOTAL PROTEIN 7.2 G/DL (5.7-8.2); TRIGLYCERIDES LEVEL 85 MG/DL (<150)
[2024-04-09 17:27] LABS: THYROID STIMULATING HORMONE 1.171 uIU/ML (0.55-4.78)
== END ==
LOC: M LAB REF 16:43
PROVIDERS: ATTEND Family Medicine Addiction Medicine
DX: E78.5 Hyperlipidemia, unspecified (principal)

== ENCOUNTER → 2024-10-28 | Outpatient (REF) | LOC: M PLAIMG 14:53 | PROVIDERS: ATTEND Internal Medicine | DX: M25.561 Pain in right knee (principal) ==